=== PATIENT | male | born 1990 | race Caucasian/White ===

== ENCOUNTER 2022-03-10 10:47 | Emergency (ER) | payer OTHER ==
[2022-03-10 12:01] LABS: HEMOGLOBIN 13.6 gm/dl (14.0-17.5); RED BLOOD COUNT 4.83 M/UL (4.20-5.50); WHITE BLOOD COUNT 6.4 K/UL (4.5-11.0)
[2022-03-10 12:27] LABS: BUN/CREATININE RATIO 9 (0-10)
== END 2022-03-10 15:20 | disposition home or self-care (01) ==
LOC: ER1 10:47
PROVIDERS: Nurse Practitioner
DX: N20.0 Calculus of kidney (principal); F17.290 Nicotine dependence, other tobacco product, uncomplicated
CPT/HCPCS: 80053; 81001; 85025; 87086; 99284; Q9967